=== PATIENT | male | born 1955 | race Caucasian/White ===

== ENCOUNTER 2018-01-19 05:16 | Inpatient (IN) | payer OTHER ==
[2018-01-19] VITALS (10 sets, daily range): BP systolic 128–144; BP diastolic 71–90
[~2018-01-19] VITALS: Ht 180.3 cm; Wt 83.9 kg
[2018-01-19] MEDS ORDERED: OMEPRAZOLE20 M2 ORAL (06:07)
[2018-01-19] MEDS ORDERED: ASPIRIN EC325 MG ORAL (06:07)
[2018-01-19] MEDS ORDERED: UROXATRAL10 MG ORAL (06:07)
[2018-01-19] MEDS ORDERED: ATORVASTATIN CA20 MG ORAL (06:07)
[2018-01-19] MEDS ORDERED: DIOVAN160 MG ORAL (06:07)
[2018-01-19] MEDS ORDERED: Thrombin 5000 units TOPIC ONE (06:50)
[2018-01-19] MEDS ORDERED: Vancomycin 1gm inj IVPB ONE ×2 (06:51)
[2018-01-19] MEDS ORDERED: Surgicel 4in x 8in TOPIC ONE (06:51)
[2018-01-19] MEDS ORDERED: Bacitracin 50000 Units Vial ONE (06:51)
[2018-01-19] MEDS ORDERED: Ketorolac 30mg Inj ONE (07:00)
[2018-01-19] MEDS ORDERED: Neostigmine 1mg/ml 10ml Inj ONE (07:00)
[2018-01-19] MEDS ORDERED: fentaNYL 100 mcg/2 mL IV ONE (07:00)
[2018-01-19] MEDS ORDERED: Dexamethasone 4mg/ml vial ONE (07:00)
[2018-01-19] MEDS ORDERED: Zemuron 50mg/5ml Inj IV ONE (07:00)
[2018-01-19] MEDS ORDERED: NS Irrig 1000ml ONE (07:00)
[2018-01-19] MEDS ORDERED: Vancomycin 1 GM in D5W 275 ML IVPB ONE (07:00)
[2018-01-19] MEDS ORDERED: Midazolam 2mg/2ml Inj ONE (07:00)
[2018-01-19] MEDS ORDERED: Succinylcholine 20mg/ml 10ml vial ONE (07:00)
[2018-01-19] MEDS ORDERED: LR 1000ml ONE (07:00)
[2018-01-19] MEDS ORDERED: Morphine Sulfate 10mg/ml Inj ONE (07:00)
[2018-01-19] MEDS ORDERED: Glycopyrrolate 0.2mg/ml 1ml Vial ONE (07:00)
[2018-01-19] MEDS ORDERED: Metoclopramide 10mg/2ml Inj ONE (07:00)
[2018-01-19] MEDS ORDERED: Propofol 1,000mg/ 100ml btl IV ONE (07:00)
[2018-01-19] MEDS ORDERED: Sterile Water Irrig 1000ml IRRIG ONE (07:00)
--- NOTE | 2018-01-19 07:19 | Pre-Procedure Note/Attestation ---
Pre-Procedure Note/Attestation Complete Prior to Procedure Planned Procedure: not applicable Procedure Narrative: Artificial disc replacement of C56 and anterior cervical discectomy and fusion of C67 Indications for Procedure Pre-Operative Diagnosis: Herniation of 56 and 67 Attestation I attest that I discussed the nature of the procedure; its benefits; risks and complications; and alternatives (and the risks and benefits of such alternatives ), prior to the procedure, with the patient (or the patient's legal order entry representative). I attest that, if there was a reasonable possibility of needing a blood transfusion, the patient (or the patient's legal order entry representative) was given the [facility] standardized written summary, pursuant to the [place] Blood Safety Act ([place] Health and Safety Code # 1645, as amended). I attest that I re-evaluated the patient just prior to the surgery and that there has been no change in the patient's H&P, except as documented below: TERRELL HICKS Jan 19, 2018 07:19
--- NOTE | 2018-01-19 07:20 | Brief Operative Note ---
Immediate Post Operative Note Operative Note Chief Complaint: neck pain and radiculopathy Pre-op Diagnosis: Herniation of 56 and 67 Procedure: Artificial disc replacement of C56 and anterior cervical discectomy and fusion of C67 Post-op Diagnosis: same as pre-op Findings: consistent w/pre-op dx studies Surgeon: Thanh Pinsetter Mechanic Automatic: Gilma Anesthesia: general Specimen: none Complications: none Condition: stable Estimated Blood Loss: minimal Implant(s) used?: Yes - Prodisc C, nuvasive interlock C TERRELL HICKS Jan 19, 2018 07:20
[2018-01-19] MEDS ORDERED: HYDROmorphone 1mg/ml Carpuject IVP PRN (07:30)
[2018-01-19] MEDS ORDERED: Naloxone 0.4mg/ml Inj IVP PRN (07:30)
[2018-01-19] MEDS ORDERED: Norco 5mg/325mg tab ORAL PRN (07:30)
[2018-01-19] MEDS ORDERED: Chloraseptic Spray 20mL Bottle ORAL PRN (07:30)
[2018-01-19] MEDS ORDERED: Milk of Magnesia 30ml Ud ORAL PRN (07:30)
[2018-01-19] MEDS ORDERED: HYDROcodone/Acetamin 7.5/325 tab ORAL PRN ×2 (07:30)
[2018-01-19] MEDS ORDERED: HYDROmorphone 1mg/ml Carpuject SUBQ PRN (07:30)
[2018-01-19] MEDS ORDERED: LR 1000ml 1,000 ML IVLG SCH (08:17)
--- NOTE | 2018-01-19 08:20 | Anethesia Preoperative Eval ---
Anesthesia Pre-op PMH/ROS General Date of Evaluation: Jan 19, 2018 Time of Evaluation: 06:55 Anesthesiologist: DUNCAN ASA Score: ASA 2 Mallampati Score Class I : Soft palate, uvula, fauces, pillars visible Class II: Soft palate, uvula, fauces visible Class III: Soft palate, base of uvula visible Class IV: Only hard plate visible Mallampati Classification: Class II Surgeon: FABIOLA Diagnosis: CERVICAL RADICULOPATHY Surgical Procedure: ACDF C5-7 Anesthesia History: none Allergies: Coded Allergies: PENICILLINS (Verified Allergy, Unknown, 01/18/18) Medications: see eMAR Anesthesia Pre-op Phys. Exam Physician Exam Last Vital Signs Date Time Temp Pulse Resp B/P (MAP) Pulse Ox O2 Delivery O2 Flow Rate FiO2 01/19/18 06:02 97.1 58 18 129/79 98 Room Air 97.1 Constitutional: NAD Neurologic: CN 2-12 intact Cardiovascular: RRR Respiratory: CTA Gastrointestinal: S/NT/ND Airway Exam Mallampati Score: Class II MO: full ROM: full Teeth: intact Anesthesia Pre-op A/P Risk Assessment & Plan Plan: GA Status Change Before Surgery: No Pre-Antibiotics Drug: VANCOMYCIN Given Within 1 Hr of Incision: Yes Time Given: 08:40 Pedro Palacios M.D. Jan 19, 2018 08:20
--- NOTE | 2018-01-19 08:25 | Immediate Post-Op Evaluation ---
Immediate Post-Op Evalulation Immediate Post-Op Evalulation Procedure: ACDF Date of Evaluation: Jan 19, 2018 Time of Evaluation: 10:00 IV Fluids: 1000 Blood Products: 0 Estimated Blood Loss: 20 Urinary Output: 0 Blood Pressure Systolic: 123 Blood Pressure Diastolic: 71 Pulse Rate: 101 Respiratory Rate: 20 O2 Sat by Pulse Oximetry: 99 Temperature (Fahrenheit): 98.6 Pain Score (1-10): 0 Nausea: No Vomiting: No Patient Status: awake, reacts, patent, extubated Hydration Status: adequate Drug: VANCOMYCIN Given Within 1 Hr of Incision: Yes Time Given: 07:40 Pedro Palacios M.D. Jan 19, 2018 08:25
--- NOTE | 2018-01-19 08:27 | 48 Hour Post Anesthesia Eval ---
Post Anesthesia Evaluation Procedure: ACDF Date of Evaluation: Jan 21, 2018 Time of Evaluation: 09:00 Blood Pressure Systolic: 123 0: 71 Pulse Rate: 99 Respiratory Rate: 18 Temperature (Fahrenheit): 98 O2 Sat by Pulse Oximetry: 99 Airway: patent Nausea: No Vomiting: No Pain Intensity: 0 Hydration Status: adequate Mental Status/LOC: patient returned to baseline Post-Anesthesia Complications: NONE Follow-up care needed: ready to discharge Pedro Palacios M.D. Jan 19, 2018 08:27
[2018-01-19] MEDS ORDERED: Labetalol 5mg/ml 20ml vial IV PRN (08:30)
[2018-01-19] MEDS ORDERED: fentaNYL 100 mcg/2 mL IV PRN (08:30)
[2018-01-19] MEDS ORDERED: Morphine Sulfate 2mg/ml Inj IVP PRN (08:30)
[2018-01-19] MEDS ORDERED: Midazolam 2mg/2ml Inj IVP PRN (08:30)
[2018-01-19] MEDS ORDERED: Ketorolac 30mg Inj IV PRN (08:30)
--- NOTE | 2018-01-19 11:48 | Diagnostic Imaging Report ---
Indication: Intraoperative, upper extremity and neck pain Technique: Intraoperative images Comparison: Intraoperative images Findings: Initial image demonstrates surgical tool projected at the C6-7 disc level. Subsequent images document placement of a disc prosthesis at C5-6 and anterior fusion at C6-7 Impression: Intraoperative imaging, as described
[2018-01-19] MEDS ORDERED: Hydromorphone 0.5mg/0.5ml inj IVP PRN (12:45)
[2018-01-19] MEDS ORDERED: NS w/KCl 20mEq 1,000 ML IV SCH (13:00)
[2018-01-19] MEDS ORDERED: Docusate 100mg cap ORAL SCH (18:00)
[2018-01-19] MEDS ORDERED: Vancomycin 1 GM in D5W 275 ML IVPB SCH (21:00)
--- NOTE | 2018-01-20 00:24 | Consultation ---
History of Present Illness General Date patient seen: Jan 19, 2018 Time patient seen: 14:10 Chief Complaint: intracable neck pain Referring physician: Dr. Law Reason for Consultation: med mgmt Present Illness HPI 62y/o male with pmh of HLD, GERD, BPH, HTN, cervical disc herniation who presents s/p artificial disc replacement of C56 and anterior cervical discectomy and fusion of C67 earlier today, POD#0. No periop or postop complications. Pain controlled. Pt denies chest pain, SOB, f/c, n/v, d/c, abd pain. Allergies: Coded Allergies: PENICILLINS (Verified Allergy, Unknown, 01/18/18) Medication History Scheduled Alfuzosin 10Mg (Uroxatral), 10 MG ORAL DAILY, (Reported) Aspirin* (Aspirin Ec*), 325 MG ORAL DAILY, (Reported) Atorvastatin Calcium* (Atorvastatin Calcium*), 10 MG ORAL 3XW, (Reported) Omeprazole (Omeprazole), 20 MG ORAL DAILY, (Reported) Valsartan (Diovan), 160 MG ORAL DAILY, (Reported) Patient History History Provided By: Patient, Medical Record Healthcare decision maker dex brice () Resuscitation status Full Code Advanced Directive on File No Past Medical/Surgical History Past Medical/Surgical History: (1) HTN (hypertension) (2) HLD (hyperlipidemia) (3) GERD (gastroesophageal reflux disease) (4) BPH (benign prostatic hyperplasia) Family History Family History: (1) No significant family history Social History Social History: (1) No significant social history Review of Systems Constitutional: Reports: no symptoms Eye: Reports: no symptoms ENT: Reports: no symptoms Respiratory: Reports: no symptoms Cardiovascular: Reports: no symptoms Genitourinary: Reports: no symptoms Musculoskeletal: Reports: back pain, muscle pain Skin: Reports: no symptoms Psychiatric: Reports: no symptoms Neurological: Reports: no symptoms Endocrine: Reports: no symptoms Hematologic/Lymphatic: Reports: no symptoms Physical Exam Physical Exam Narrative General: alert, cooperative, no distress, appears stated age Head: normocephalic, without obvious abnormality, atraumatic Eyes: conjunctivae/corneas clear. PERRL, EOM's intact Throat: lips, mucosa, and tongue normal. MMM Neck: supple, symmetrical, trachea midline, and no JVD Lungs: clear to auscultation bilaterally Heart: regular rate and rhythm, S1, S2 normal, no murmur, click, rub or gallop Abdomen: soft, non-tender, non-distended, bowel sounds normal; no masses or organomegaly Extremities: extremities normal, atraumatic, no cyanosis or edema Pulses: 2+ and symmetric Skin: dressing c/d/i Neurologic: grossly normal, no focal deficits Last 24 Hour Vital Signs Date Time Temp Pulse Resp B/P (MAP) Pulse Ox O2 Delivery O2 Flow Rate FiO2 01/19/18 13:35 97.6 01/19/18 13:05 97.6 01/19/18 12:50 Nasal Cannula 3.0 32 01/19/18 12:50 100 Nasal Cannula 3.0 32 01/19/18 10:50 97.6 01/19/18 10:50 97.6 01/19/18 10:50 97.6 61 16 128/82 100 Nasal Cannula 3.0 97.6 01/19/18 10:45 59 15 132/78 100 Nasal Cannula 3.0 01/19/18 10:34 97.6 01/19/18 10:30 62 17 130/71 100 Nasal Cannula 3.0 01/19/18 10:20 68 16 132/77 100 Nasal Cannula 3.0 01/19/18 10:10 71 15 137/77 100 Simple Mask 6.0 01/19/18 10:05 97.0 01/19/18 10:00 82 16 142/90 100 Simple Mask 6.0 01/19/18 09:50 90 13 144/80 98 Simple Mask 6.0 01/19/18 09:45 78 13 140/80 98 Simple Mask 6.0 01/19/18 09:40 97.0 81 14 140/78 97 Simple Mask 6.0 97.0 01/19/18 08:27 208.4 99 18 99 01/19/18 08:25 209.5 101 20 99 01/19/18 06:02 97.1 58 18 129/79 98 Room Air 97.1 Intake and Output 01/19/18 01/20/18 19:00 07:00 Intake Total 1500 ml Output Total 430 ml Balance 1070 ml Intake IV Total 1500 ml Output Urine Total 400 ml Estimated Blood Loss 30 ml Height (Feet): 5 Height (Inches): 11.00 Weight (Pounds): 185 Assessment/Plan Problem List: (1) HNP (herniated nucleus pulposus), cervical ICD Codes: M50.20 - Other cervical disc displacement, unspecified cervical region SNOMED: 50624511 (2) HTN (hypertension) ICD Codes: I10 - Essential (primary) hypertension SNOMED: 99046246 (3) HLD (hyperlipidemia) ICD Codes: E78.5 - Hyperlipidemia, unspecified SNOMED: 37783841 (4) BPH (benign prostatic hyperplasia) ICD Codes: N40.0 - Benign prostatic hyperplasia without lower urinary tract symptoms SNOMED: 434349766 (5) GERD (gastroesophageal reflux disease) ICD Codes: K21.9 - Gastro-esophageal reflux disease without esophagitis SNOMED: 745924903 Status: stable Assessment/Plan Appreciate surgery rec's s/p artificial disc replacement of C56 and anterior cervical discectomy and fusion of C67 on 02/22/18 Post operative recommendations include: - encourage mobilization/ambulation - encourage incentive spirometry to optimize pulmonary hygiene - DVT/GI prophylaxis as appropriate - PT/OT - pain control, supportive care, bowel regimen FULL CODE D/w pt/, RN, SW/CM, surgery regarding mgmt and dispo Darline Mccabe M.D. Jan 20, 2018 00:24
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
== END 2018-01-19 17:30 | disposition home or self-care (01) | DRG 473 ==
LOC: SDSOVERFLO 05:16 → 3E 11:48
PROC: 0RB30ZZ Excision of Cervical Vertebral Disc, Open Approach (ICD-10-PCS; principal; 2018-01-19 07:00)
PROC: 0RR30JZ Replacement of Cervical Vertebral Disc with Synthetic Substitute, Open Approach (ICD-10-PCS; principal; 2018-01-19 07:00)
PROC: 0RG10A0 Fusion of Cervical Vertebral Joint with Interbody Fusion Device, Anterior Approach, Anterior Column, Open Approach (ICD-10-PCS; principal; 2018-01-19 07:00)
DX: M50.122 Cervical disc disorder at C5-C6 level with radiculopathy (principal); I10 Essential (primary) hypertension; M48.02 Spinal stenosis, cervical region; R35.0 Frequency of micturition; E78.00 Pure hypercholesterolemia, unspecified; Z88.0 Allergy status to penicillin; V43.53XS Car driver injured in collision with pick-up truck in traffic accident, sequela
CPT/HCPCS: 36415; 51702; 72040; 76001; 86850; 86900; 86901; 87081; 94003; 94150; 94760; 96360; 96361; G0378; J2250; J2405; J2710; J2765

== ENCOUNTER 2018-07-29 08:56 | Inpatient (IN) | payer OTHER ==
[~2018-07-29] VITALS: Ht 180.3 cm; Wt 83.9 kg
[2018-07-29] VITALS (9 sets, daily range): BP systolic 135–154; BP diastolic 69–87
[~2018-07-29 08:56] MED LIST: ASPIRIN EC325 MG ORAL; ATORVASTATIN CA20 MG ORAL; DIOVAN160 MG ORAL; OMEPRAZOLE20 M2 ORAL; UROXATRAL10 MG ORAL; Vancomycin 1 GM in D5W 275 ML IVPB ONE
[2018-07-29] MEDS ORDERED: Vancomycin 1gm inj IVPB ONE ×3 (09:55→11:14)
[2018-07-29] MEDS ORDERED: Zemuron 50mg/5ml Inj IV ONE (09:55)
[2018-07-29] MEDS ORDERED: Midazolam 2mg/2ml Inj ONE (10:00)
[2018-07-29] MEDS ORDERED: fentaNYL 100 mcg/2 mL IV ONE (10:00)
[2018-07-29] MEDS ORDERED: Lidocaine 1% MPF 10mg/ml 5ml ONE (10:08)
[2018-07-29] MEDS ORDERED: EPINEPHrine 1mg/1ml Amp ONE (10:55)
[2018-07-29] MEDS ORDERED: Bupivacaine 0.5% Inj 30 ml vial INJ ONE ×2 (10:56→11:32)
[2018-07-29] MEDS ORDERED: Bacitracin 50000 Units Vial ONE (10:56)
[2018-07-29] MEDS ORDERED: Gelfoam Size TOPIC ONE (10:56)
[2018-07-29] MEDS ORDERED: Thrombin 5000 units TOPIC ONE (10:56)
--- NOTE | 2018-07-29 11:40 | Pre-Procedure Note/Attestation ---
Pre-Procedure Note/Attestation Complete Prior to Procedure Planned Procedure: right Procedure Narrative: Lumbar 5-S1 right sided microdiscectomy Indications for Procedure Pre-Operative Diagnosis: L5S1 Microdiscectomy Attestation I attest that I discussed the nature of the procedure; its benefits; risks and complications; and alternatives (and the risks and benefits of such alternatives ), prior to the procedure, with the patient (or the patient's legal medical collections representative). I attest that, if there was a reasonable possibility of needing a blood transfusion, the patient (or the patient's legal medical collections representative) was given the [facility] standardized written summary, pursuant to the [place] Blood Safety Act ([place] Health and Safety Code # 1645, as amended). I attest that I re-evaluated the patient just prior to the surgery and that there has been no change in the patient's H&P, except as documented below: Byron Law MD Jul 29, 2018 11:39
--- NOTE | 2018-07-29 11:41 | Brief Operative Note ---
Immediate Post Operative Note Operative Note Chief Complaint: Radiculopathy Pre-op Diagnosis: L5S1 Microdiscectomy Procedure: Lumbar 5-S1 right sided microdiscectomy Post-op Diagnosis: same as pre-op Findings: consistent w/pre-op dx studies Surgeon: Thanh Travel Clerk: Shaquille Anesthesiologist: RENITA Anesthesia: general Specimen: none Complications: none Condition: stable Fluids: IVF Estimated Blood Loss: none Implant(s) used?: No Byron Law MD Jul 29, 2018 11:41
[2018-07-29] MEDS ORDERED: Norco 5mg/325mg tab ORAL PRN (11:45)
[2018-07-29] MEDS ORDERED: HYDROmorphone 1mg/ml Carpuject IVP PRN (11:45)
[2018-07-29] MEDS ORDERED: Milk of Magnesia 30ml Ud ORAL PRN (11:45)
[2018-07-29] MEDS ORDERED: Morphine Sulfate 4mg/ml Inj (IV USE ONLY) IV PRN ×2 (11:45)
[2018-07-29] MEDS ORDERED: Naloxone 0.4mg/ml Inj IVP PRN (11:45)
[2018-07-29] MEDS ORDERED: Metoclopramide 10mg/2ml Inj IVP PRN (11:45)
[2018-07-29] MEDS ORDERED: Morphine Sulfate 2mg/ml Inj IV PRN (11:45)
[2018-07-29] MEDS ORDERED: HYDROcodone/Acetamin 7.5/325 tab ORAL PRN ×2 (11:45)
[2018-07-29] MEDS: Dexamethasone 4mg/ml vial IVP SCH ×2 (12:00→18:00)
[2018-07-29] MEDS ORDERED: Morphine Sulfate 10mg/ml Inj ONE (12:20)
[2018-07-29] MEDS ORDERED: Sodium Chloride 10ml vial INJ ONE (12:20)
[2018-07-29] MEDS ORDERED: Neostigmine 1mg/ml 10ml Inj ONE (12:20)
[2018-07-29] MEDS ORDERED: Glycopyrrolate 0.2mg/ml 1ml Vial ONE (12:20)
[2018-07-29] MEDS ORDERED: Ketorolac 30mg Inj ONE (12:20)
[2018-07-29] MEDS ORDERED: Propofol 1,000mg/ 100ml btl IV ONE (12:30)
[2018-07-29] MEDS ORDERED: Sterile Water Irrig 1000ml IRRIG ONE (12:30)
[2018-07-29] MEDS ORDERED: LR 1000ml ONE (12:30)
[2018-07-29] MEDS ORDERED: NS Irrig 1000ml ONE (12:30)
[2018-07-29] MEDS ORDERED: Succinylcholine 20mg/ml 10ml vial ONE (12:30)
[2018-07-29] MEDS ORDERED: LR 1000ml 1,000 ML IVLG SCH (12:40)
--- NOTE | 2018-07-29 12:40 | Anethesia Preoperative Eval ---
Anesthesia Pre-op PMH/ROS General Date of Evaluation: Jul 29, 2018 Time of Evaluation: 11:28 Anesthesiologist: Helen ASA Score: ASA 2 Mallampati Score Class I : Soft palate, uvula, fauces, pillars visible Class II: Soft palate, uvula, fauces visible Class III: Soft palate, base of uvula visible Class IV: Only hard plate visible Mallampati Classification: Class II Surgeon: Thanh Diagnosis: Lumbar radiculopathy Surgical Procedure: L5-S1 laminotomy with decompression Anesthesia History: none Family History: no anesthesia problems Allergies: Coded Allergies: PENICILLINS (Verified Allergy, Unknown, 01/18/18) Medications: see eMAR Past Medical History Cardiovascular: Reports: HTN - stable; Denies: CAD, TN, valve dz, arrhythmia, other Pulmonary: Denies: asthma, COPD, JUSTINE, other Gastrointestinal/Genitourinary: Reports: GERD; Denies: CRI, ESRD, other Neurologic/Psychiatric: Reports: other - chronic pain; Denies: dementia, CVA, depression/anxiety, TIA Endocrine: Denies: DM, hypothyroidism, steroids, other HEENT: Denies: cataract (L), cataract (R), glaucoma, [place] (L), [place] (R), other Hematology/Immune: Denies: anemia, DVT, bleeding disorder, other Musculoskeletal/Integumentary: Denies: OA, RA, DJD, DDD, edema, other PMH Narrative: as above PSxH Narrative: ACDF, R knee replacement Anesthesia Pre-op Phys. Exam Physician Exam Last Vital Signs Date Time Temp Pulse Resp B/P (MAP) Pulse Ox O2 Delivery O2 Flow Rate FiO2 07/29/18 09:38 97.8 50 18 135/81 (99) 96 97.8 07/29/18 09:28 Room Air Constitutional: NAD Neurologic: CN 2-12 intact Cardiovascular: RRR, no M/R/G Respiratory: CTA Gastrointestinal: S/NT/ND Airway Exam Mallampati Score: Class II MO: full Neck: stiff ROM: limited Teeth: intact Dentures: no upper, no lower Anesthesia Pre-op A/P Labs see chart Studies Pre-op Studies: EKG - NSR, CXR - WNL Risk Assessment & Plan Assessment: ASA 2 Plan: GA wth ETT prone position, neuromonitoring Status Change Before Surgery: No Pre-Antibiotics Drug: Vancomycin 1gr. Given Within 1 Hr of Incision: Yes Time Given: 12:20 Alfie Cervantse MD Jul 29, 2018 12:40
[2018-07-29] MEDS ORDERED: Midazolam 2mg/2ml Inj IVP PRN (12:45)
[2018-07-29] MEDS ORDERED: DiphenhydrAMINE 50mg/ml Inj IVP PRN (12:45)
[2018-07-29] MEDS ORDERED: Meperidine 50mg/ml Inj(FOR RIGORS ONLY) IV PRN (12:45)
[2018-07-29] MEDS ORDERED: Ketorolac 30mg Inj IV PRN (12:45)
[2018-07-29] MEDS ORDERED: fentaNYL 100 mcg/2 mL IV PRN (12:45)
--- NOTE | 2018-07-29 13:50 | Diagnostic Imaging Report ---
Indication: Intraoperative imaging; back pain. Findings: Fluoroscopic imaging obtained intraoperatively. Fluoroscopic time: 2.2 seconds Number fluoroscopic images: Single image. Single image showing instrument posterior to the L5-S1 disc. IMPRESSION: Intraoperative imaging
--- NOTE | 2018-07-29 13:57 | Immediate Post-Op Evaluation ---
Immediate Post-Op Evalulation Immediate Post-Op Evalulation Procedure: L5-S1 laminotomy with decompression Date of Evaluation: Jul 29, 2018 Time of Evaluation: 13:56 IV Fluids: 1400 Blood Products: none Estimated Blood Loss: 50 Urinary Output: 500 Blood Pressure Systolic: 141 Blood Pressure Diastolic: 84 Pulse Rate: 86 Respiratory Rate: 20 O2 Sat by Pulse Oximetry: 99 Temperature (Fahrenheit): 97.6 Pain Score (1-10): 1 Nausea: No Vomiting: No Complications none Patient Status: awake, patent, none Hydration Status: adequate Alfie Cervantes MD Jul 29, 2018 13:57
--- NOTE | 2018-07-29 14:49 | 48 Hour Post Anesthesia Eval ---
Post Anesthesia Evaluation Procedure: L5-S1 laminotomy with decompression Date of Evaluation: Jul 29, 2018 Time of Evaluation: 14:48 Blood Pressure Systolic: 146 0: 73 Pulse Rate: 68 Respiratory Rate: 20 Temperature (Fahrenheit): 97.6 O2 Sat by Pulse Oximetry: 98 Airway: patent Nausea: No Vomiting: No Pain Intensity: 2 Hydration Status: adequate - s Cardiopulmonary Status: stable Mental Status/LOC: patient returned to baseline Follow-up Care/Observations: n/a Post-Anesthesia Complications: none Follow-up care needed: ready to discharge Alfie Cervantes MD Jul 29, 2018 14:49
--- NOTE | 2018-07-29 15:18 | History and Physical ---
History of Present Illness General Date patient seen: Jul 29, 2018 Present Illness HPI 62 year old male with hx of Hypertension, CAD, admitted with radicular neuropathy. Pt underwent microdisectomy and admitted to surgical floor for post op care. Allergies: Coded Allergies: PENICILLINS (Verified Allergy, Unknown, 01/18/18) Medication History Scheduled Alfuzosin 10Mg (Uroxatral), 10 MG ORAL DAILY, (Reported) Aspirin* (Aspirin Ec*), 325 MG ORAL DAILY, (Reported) Atorvastatin Calcium* (Atorvastatin Calcium*), 10 MG ORAL 3XW, (Reported) Omeprazole (Omeprazole), 20 MG ORAL DAILY, (Reported) Valsartan (Diovan), 160 MG ORAL DAILY, (Reported) Patient History Healthcare decision maker dex brice - Resuscitation status Full Code Advanced Directive on File No Past Medical/Surgical History Past Medical/Surgical History: (1) HTN (hypertension) (2) GERD (gastroesophageal reflux disease) (3) BPH (benign prostatic hyperplasia) Family History Family History: No significant family history Review of Systems All Other Systems: negative except mentioned in HPI Physical Exam General Appearance: WD/WN Lines, tubes and drains: peripheral HEENT: atraumatic Neck: non-tender, normal alignment Respiratory/Chest: chest wall non-tender, normal breath sounds Cardiovascular/Chest: normal peripheral pulses, normal rate Abdomen: normal bowel sounds Genitourinary/Rectal: normal genital exam Extremities: non-tender Last 24 Hour Vital Signs Date Time Temp Pulse Resp B/P (MAP) Pulse Ox O2 Delivery O2 Flow Rate FiO2 07/29/18 14:49 207.7 68 20 98 07/29/18 14:35 98.3 77 20 137/85 100 Nasal Cannula 3 98.3 07/29/18 14:25 78 15 140/87 100 Nasal Cannula 3 07/29/18 14:13 98.3 07/29/18 14:13 73 13 144/78 100 Nasal Cannula 3 07/29/18 14:05 75 20 139/81 100 Simple Mask 6 07/29/18 13:57 207.7 86 20 99 07/29/18 13:55 82 16 146/76 100 Simple Mask 6 07/29/18 13:50 65 18 141/84 100 Simple Mask 6 07/29/18 13:45 97.8 92 20 154/69 100 Simple Mask 6 97.8 07/29/18 09:38 97.8 50 18 135/81 (99) 96 97.8 07/29/18 09:28 Room Air Height (Feet): 5 Height (Inches): 11.00 Weight (Pounds): 185 Medications Current Medications Medications (Trade) Dose Ordered Sig/Thong Route PRN Reason Start Time Stop Time Status Last Admin Dose Admin Acetaminophen (Tylenol) 650 mg Q4H PRN ORAL headache or temp>101 07/29/18 11:45 08/28/18 11:44 UNV Acetaminophen/ Hydrocodone Bitart ([place] 5/325) 1 tab Q3H PRN ORAL pain score 1-3 07/29/18 11:45 08/05/18 11:44 UNV Acetaminophen/ Hydrocodone Bitart ([place] 7.5/325) 1 tab Q3H PRN ORAL pain score 4-6 07/29/18 11:45 08/05/18 11:44 UNV Acetaminophen/ Hydrocodone Bitart ([place] 7.5/325) 2 tab Q3H PRN ORAL pain scale 7-10 07/29/18 11:45 08/05/18 11:44 UNV Carisoprodol (Soma) 350 mg TIDPRN PRN ORAL SPASM 07/29/18 11:45 08/28/18 11:44 UNV Cetylpyridinium Chloride (Cepacol) 1 lozg EVERY 2 HOURS PRN MARIANNA To Patient Comfort 07/29/18 11:45 08/28/18 11:44 UNV Dexamethasone Sodium Phosphate (Decadron 4mg/ml vial) 4 mg Q6HR IVP 07/29/18 12:00 07/30/18 06:01 UNV Diphenhydramine HCl (Benadryl) 25 mg Q15M PRN IVP Itching 07/29/18 12:45 07/29/18 18:00 Docusate Sodium (Colace) 100 mg TWICE A DAY ORAL 07/29/18 18:00 08/28/18 17:59 UNV Fentanyl Citrate (Sublimaze 100 mcg/2 mL) 50 mcg Q10M PRN IV Moderate Pain (Pain Scale 4-6) 07/29/18 12:45 07/29/18 18:00 Hydromorphone HCl (Dilaudid) 1 mg Q2H PRN IVP Breakthrough Pain 07/29/18 11:45 08/05/18 11:44 UNV Ketorolac Tromethamine (Toradol 30mg) 30 mg Q1H PRN IV Severe Breakthru Pain (>7) 07/29/18 12:45 07/29/18 18:00 Magnesium Hydroxide (Mom) 30 ml QIDPRN PRN ORAL Constipation 07/29/18 11:45 08/28/18 11:44 UNV Meperidine HCl (Demerol) 25 mg Q15M PRN IV chills 07/29/18 12:45 07/29/18 18:00 07/29/18 14:13 Metoclopramide HCl (Reglan) 10 mg Q6H PRN IVP Nausea & Vomiting 07/29/18 11:45 08/28/18 11:44 UNV Midazolam HCl (Versed 2mg/2ml vial) 1 mg Q15M PRN IVP For Anxiety 07/29/18 12:45 07/29/18 18:00 Morphine Sulfate (Morphine Sulfate) 2 mg Q4H PRN IV Mild Pain (Pain Scale 1-3) 07/29/18 11:45 08/05/18 11:44 UNV Morphine Sulfate (Morphine Sulfate) 4 mg Q3H PRN IV Severe Pain (Pain Scale 7-10) 07/29/18 11:45 08/05/18 11:44 UNV Morphine Sulfate (Morphine Sulfate) 4 mg Q4H PRN IV Moderate Pain (Pain Scale 4-6) 07/29/18 11:45 08/05/18 11:44 UNV Naloxone HCl (Narcan) 0.1 mg PRN PRN IVP RR<12/min, pt unarousable 07/29/18 11:45 08/28/18 11:44 UNV Ondansetron HCl (Zofran) 4 mg Q1H PRN IVP Nausea & Vomiting 07/29/18 12:45 07/29/18 18:00 Ondansetron HCl (Zofran) 4 mg Q6H PRN IVP Nausea & Vomiting 07/29/18 11:45 08/28/18 11:44 UNV Phenol/Menthol (Chloraseptic) 1 spray Q3H PRN ORAL To Patient Comfort 07/29/18 11:45 08/28/18 11:44 UNV Prochlorperazine (Compazine) 10 mg Q6H PRN IVP Nausea & Vomiting 07/29/18 11:45 08/28/18 11:44 UNV Sodium Chloride 1,000 ml @ 100 mls/hr Q10H IV 07/29/18 11:41 08/28/18 11:40 UNV Temazepam (Restoril) 15 mg HSPRN PRN ORAL Insomnia 07/29/18 11:45 08/05/18 11:44 UNV Vancomycin HCl 1 gm/Dextrose 275 ml @ 183.3 mls/ hr EVERY 12 HOURS IV 07/29/18 21:00 07/30/18 10:31 UNV Assessment/Plan Problem List: (1) S/P discectomy for herniated nucleus pulposus ICD Codes: Z98.890 - Other specified postprocedural states; Z87.39 - Personal history of other diseases of the musculoskeletal system and connective tissue SNOMED: 27726926, 92180940, 520525643 (2) Herniation of intervertebral disc SNOMED: 90106164 (3) HTN (hypertension) ICD Codes: I10 - Essential (primary) hypertension SNOMED: 40146501 (4) GERD (gastroesophageal reflux disease) ICD Codes: K21.9 - Gastro-esophageal reflux disease without esophagitis SNOMED: 495270897 Assessment/Plan pain management symptomatic treatment dvt prophylaxis pt/ot Malia Hood MD Jul 29, 2018 15:18
[2018-07-29] MEDS ORDERED: NS w/KCl 20mEq 1,000 ML IV SCH (16:00)
[2018-07-29] MEDS ORDERED: Chloraseptic Spray 20mL Bottle ORAL PRN (16:00)
[2018-07-29] MEDS ORDERED: Docusate 100mg cap ORAL SCH (18:00)
[2018-07-29] MEDS ORDERED: Vancomycin 1 GM in D5W 275 ML IVPB SCH (21:00)
[2018-07-29] MEDS ORDERED: Atorvastatin 20mg tab ORAL SCH (21:00)
[2018-07-30] MEDS ORDERED: Irbesartan 150mg tablet ORAL SCH (09:00)
--- NOTE | 2018-07-30 17:00 | Discharge Summary ---
DATE OF ADMISSION: 07/29/2018 DATE OF DISCHARGE: 07/29/2018 REASON FOR ADMISSION: Herniated nucleus pulposus, L5-S1. PROCEDURES PERFORMED DURING ADMISSION: Microdiskectomy L5-S1 and hemilaminotomy and foraminotomy. HOSPITAL COURSE/TREATMENT RENDERED: . DISCHARGE PHYSICAL EXAM: 1. Patient was ambulating with and without the assistance of physical therapy. 2. Prior to discharge home incision was clean and dry with minimal swelling. 3. Follows commands. 4. Alert and oriented. 5. Mcknight discontinued, voiding. 6. Incentive spirometer at bedside. 7. IVF hep locked. MOTOR: Demonstrates expected postoperative bulk and tone. Moves biceps, triceps, and deltoid musculature on command. Moves hip flexors, quadriceps, tibialis anterior, EHL, gastrocsoleus musculature on command as well. TREATMENT RENDERED: 1. Daily nursing care. 2. Physical Therapy. 3. Occupational Therapy. 4. Intravenous medications. 5. Oral medications. 6. Daily postoperative examinations by Spine surgery team. CONDITION OF PATIENT ON DISCHARGE: The condition on discharge is stable for discharge to home. DISCHARGE INSTRUCTIONS: Our specific instructions relating to physical activity, medications diet and follow-up care are detailed in our standard operative folder and were given to this patient prior to surgery. We will however summarize these briefly as stated below. Regarding physical activity we would like the patient to limit their flexion, extension and rotation. We also require a limitation on their bending lifting and twisting. All medication has been called in prior to surgery to their pharmacy of choice. They can resume their regular diet once tolerated. We would like them to shower and limit soaking the wound in a tub/Jacuzzi/the ocean for a period of one month or until the incision is completely healed. We will have them follow up in our office in three weeks time for their regularly scheduled appointment. They understand to call our office tomorrow to schedule the time for their three week followup appointment. The patient will notify us should they experience any increase in the severity of pain, redness/swelling/ or drainage from their incision. Byron Law M.D. DR: LEIGHA JOB#: [id number] CC:
--- NOTE | 2018-07-30 23:30 | Operative Note - Dictated ---
DATE OF OPERATION: 07/29/2018 SURGEON: Byron Law M.D., Orthopaedic Spine Surgeon. PHYSICS TECHNICAL OFFICER SURGEON: Paul Corbin M.D. ANESTHESIA: General endotracheal anesthesia. PREOPERATIVE DIAGNOSES: 1. Intractable back pain. 2. Intractable leg pain. 3. Worsening radiculopathy. 4. Weakness. 5. Herniated nucleus pulposus, L5-S1 herniation. 6. Neural foraminal stenosis, L5-S1. POSTOPERATIVE DIAGNOSES: 1. Intractable back pain. 2. Intractable leg pain. 3. Worsening radiculopathy. 4. Weakness. 5. Herniated nucleus pulposus, L5-S1 herniation. 6. Neural foraminal stenosis, L5-S1. PROCEDURES PERFORMED: 1. Right-sided L5-S1 microdiskectomy. 2. Bilateral L5-S1 hemilaminotomy, foraminotomy, and medial facetectomy. 3. L5-S1 neural foraminotomy through a transpedicular intraforaminal approach. 4. Use of intraoperative microscope. 5. Supervision and interpretation of intraoperative fluoroscopy. 6. Supervision and interpretation of somatosensory-evoked potential and free running EMG monitoring. ESTIMATED BLOOD LOSS: Less than 100 mL. COMPLICATIONS: None. INDICATIONS FOR THE PROCEDURE: The patient presents for intractable back pain and radiculopathy. The patient tried and failed a prolonged course of conservative management, including but not limited to chiropractic therapy, physical therapy, nonsteroidal anti-inflammatory drugs, medication, ice packs as well as epidural injection. Despite these therapies, the patient still developed recalcitrant pain and elected for definitive management in the form of right-sided L5-S1 microdiskectomy, bilateral L5-S1 hemilaminotomy, foraminotomy and medial facetectomy, and L5-S1 neural foraminotomy through a transpedicular intraforaminal approach. We had a long discussion with him regarding definitive surgical treatment options. The patient's MRI demonstrated herniated nucleus pulposus, L5-S1 herniation and neural foraminal stenosis, L5-S1 and as a result I felt he would benefit from the diskectomy as well as neural foraminotomy at this level. We had a long discussion with the patient regarding the risks, alternatives, and benefits of surgery. Our description of the risks included a discussion in person as well as a signed consent which detailed all pertinent risks and the procedure itself. Briefly, our discussion included but was not limited to infection, bleeding, pseudarthrosis, spinal cord injury, neurovascular injury, dural tear, CSF leak, neuropathy, paralysis, permanent weakness/drop foot, paresthesias blindness, palsy, and weakness. The patient understood there may be a need for revision surgery or additional procedures. Approach-related complications including dysphonia, dysphagia, blindness, permanent vocal cord and neural injury, hematoma, swallowing and breathing difficulty. Medical complications including liver, kidney, shock, and cardiopulmonary failure. Anesthesia complications including , swelling, damage to the musculature, larynx (voice injury or loss), esophagus (throat), trachea, blood vessels and muscles (muscular sprain), and lungs (pneumothorax) during this surgical procedure. Injury to deeper structures may be temporary or permanent. The patient understood these and elected to proceed. A written and verbal consent was given. We discussed the pros and cons of all the alternatives. We discussed the uncertainties associated with the decision. Afterwards I assessed the patient's understanding and explored their preferences. All questions were answered and no guarantees were given. Medical clearance was obtained prior to surgery. OPERATIVE FINDINGS: A broad-based disk herniation at L5-S1, which encroached on the thecal sac and neural foraminal elements therein. This disk was acute in nature and not calcified. It was mobile and free floating and resected easily. There was also neural foraminal stenosis at L5-S1. DESCRIPTION OF PROCEDURE: Under the benefit of general endotracheal anesthesia and with the assistance of the entire operative team, the patient was moved from the [facility] onto the operative table in the prone position on a Gil frame. The head was secured and positioned appropriately. Bilateral arms were secured with GelPads and foam and all bony prominences were padded. The bilateral lower extremity SCD and BELKIS hose were placed for DVT prophylaxis. A surgical timeout was called which corroborated our planned procedure. Preoperative antibiotics were administered within 30 minutes of the incision for prophylaxis. Decadron was given for preoperative steroids. Using lateral radiography, the operative levels were delineated. An incision was marked based on our interpretation of lateral radiography and afterwards the body was prepped and draped in the usual sterile manner. The family was notified that we were ready to commence surgery and were called in the waiting room hourly for updates. An incision was based on our lateral fluoroscopic image to center the incision at the L5-S1 interspace. The wound was prepped and draped in the usual sterile fashion. Using a scalpel, a midline incision was taken down through the skin and subcutaneous tissues until the overlying hemilamina of L5-S1 were visualized. Next using meticulous hemostasis, bilateral hemilamotomies were dissected and retractors were placed. Using a Dane dental, we confirmed placement at the L5-S1 interspace. We next turned our attention our decompression. A standard bilateral hemilaminotomy, foraminotomy, medial facetectomy was performed at each level in standard fashion using a Midas-Jose type AM8 drill bit, straight and angled curettage, and [place] 4 rongeurs until the lateral thecal sac margin and traversing nerve root was visualized. All remainders of the ligamentum flavum and lateral bony margins were resected in toto with angled curettage and [place] 4 rongeurs until the lateral thecal sac margin and traversing nerve root was visualized and decompressed. We next turned our attention toward our L5-S1 microdiskectomy on the right side. A [place] 4 was used to gently mobilize the thecal sac medially and this was held retracted with a bayonetted nerve root retractor. It was at this point that we noted a large broad-based disk protrusion with encroachment dorsally on the thecal sac neural foraminal contents. A bayonet and nerve root retractor was then placed carefully to retract the thecal sac and a diskectomy was performed using a combination of a long-handled #15 blade scalpel, downgoing and straight pituitaries, and downgoing curettage. Afterward the disk space was irrigated twice with 20 mL of antibiotic-impregnated saline. All loose and free-floating disk fragments were carefully resected with a narrow pituitary. Having been satisfied with our decompression after our discectomy of all neural elements, we next turned our attention to our neural foraminoplasty/foraminotomy. This was performed through a transpedicular intraforaminal approach using an access probe followed by a neurocheck device, which confirmed ventral placement of our nerve root. Once we confirmed we were safe, we next turned our attention towards placement of our size #10 file under direct microscopic visualization and under lateral fluoroscopy. Using pre- and post-reciprocation imaging, we were able to visualize our direct decompression given the reciprocation allowed for re-creation of the neural foraminal arch at L5-S1. Afterwards hemostasis was obtained with 60 mL of antibiotic-impregnated saline followed by FloSeal and Gelfoam. After sponge and needle count were found to be correct, next we turned our attention to closure. Closure consisted of 1-0 Vicryl in standard interrupted fashion. Zosyn was placed deep to the fascia and superficial to the fascia for antibiotic prophylaxis. Skin closure was performed with 2-0 Vicryl in interrupted fashion followed by running Monocryl for the skin. Final dressings consisted of Dermabond for the superficial skin, Telfa, and Tegaderm. The patient tolerated the procedure well. The patient was extubated after the conclusion of surgery without incident. We discussed the findings of the surgery with the family upon completion of the case. At this point, the patient will be transferred to the spine floor for further observation. Byron Law M.D. DR: LEIGHA JOB#: [id number] CC:
== END 2018-07-29 18:15 | disposition home or self-care (01) | DRG 520 ==
LOC: SDSOVERFLO 08:56 → 3E 15:10
DX: M51.17 Intervertebral disc disorders with radiculopathy, lumbosacral region (principal); M48.07 Spinal stenosis, lumbosacral region; I10 Essential (primary) hypertension; I25.10 Atherosclerotic heart disease of native coronary artery without angina pectoris; Z88.0 Allergy status to penicillin; K21.9 Gastro-esophageal reflux disease without esophagitis; N40.0 Benign prostatic hyperplasia without lower urinary tract symptoms
CPT/HCPCS: 36415; 72020; 76001; 86850; 86900; 86901; 87081; 94003; 94150; J2250; J2710

== ENCOUNTER 2019-03-06 05:26 | Inpatient (IN) | payer OTHER ==
[~2019-03-06] VITALS: Ht 180.3 cm; Wt 84.8 kg
[2019-03-06] VITALS (14 sets, daily range): BP systolic 104–131; BP diastolic 54–86
[~2019-03-06 05:26] MED LIST changes: -Vancomycin 1 GM in D5W 275 ML IVPB ONE
[2019-03-06] MEDS ORDERED: Metoclopramide 10mg/2ml Inj IVP PRN ×2 (06:15→07:30)
[2019-03-06] MEDS ORDERED: HYDROcodone/Acetamin 7.5/325 tab ORAL PRN ×2 (06:15→07:30)
[2019-03-06] MEDS ORDERED: LORazepam Inj 2mg/ml 1ml IV PRN (06:15)
[2019-03-06] MEDS ORDERED: oxyCODONE HCL/Acetaminophen 5/325mg ORAL PRN (06:15)
[2019-03-06] MEDS ORDERED: Meperidine 50mg/ml Inj(FOR RIGORS ONLY) IVP PRN (06:15)
[2019-03-06] MEDS ORDERED: Atropine Sulfate 0.4mg/ml inj IVP PRN (06:15)
[2019-03-06] MEDS ORDERED: Labetalol 5mg/ml 20ml vial IV PRN (06:15)
[2019-03-06] MEDS ORDERED: Midazolam 2mg/2ml Inj IVP PRN (06:15)
[2019-03-06] MEDS ORDERED: HYDROcodone/Acetamin 5/325 tab ORAL PRN ×2 (06:15→07:30)
[2019-03-06] MEDS ORDERED: LR 1000ml 1,000 ML IVLG SCH (06:15)
[2019-03-06] MEDS ORDERED: Acetaminophen (Non formulary) 100 ML IV ONE (06:15)
[2019-03-06] MEDS ORDERED: Ketorolac 30mg Inj IV PRN ×2 (06:15)
[2019-03-06] MEDS ORDERED: DiphenhydrAMINE 50mg/ml Inj IVP PRN (06:15)
[2019-03-06] MEDS ORDERED: fentaNYL 100 mcg/2 mL IV PRN (06:15)
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
[2019-03-06] MEDS ORDERED: Zemuron 50mg/5ml Inj IV ONE (06:25)
[2019-03-06] MEDS ORDERED: Midazolam 2mg/2ml Inj ONE ×2 (06:35→06:55)
[2019-03-06] MEDS ORDERED: fentaNYL 100 mcg/2 mL IV ONE ×4 (06:35→12:43)
[2019-03-06] MEDS ORDERED: Lidocaine 1% Plain 30 ml INJ ONE ×2 (06:58→09:05)
[2019-03-06] MEDS ORDERED: NS Irrig 1000ml ONE (07:00)
[2019-03-06] MEDS ORDERED: LR 1000ml ONE (07:00)
[2019-03-06] MEDS ORDERED: Sterile Water Irrig 1000ml IRRIG ONE (07:00)
[2019-03-06] MEDS ORDERED: Propofol 1,000mg/ 100ml btl IV ONE (07:00)
[2019-03-06] MEDS ORDERED: Heparin 5000 units/ml inj ONE (07:03)
[2019-03-06] MEDS ORDERED: Bupivacaine w/Epi 0.5% 30ml Vial INJ ONE (07:04)
[2019-03-06] MEDS ORDERED: Gelfoam Size TOPIC ONE ×2 (07:04→07:05)
[2019-03-06] MEDS ORDERED: Thrombin 5000 units TOPIC ONE (07:04)
[2019-03-06] MEDS ORDERED: Bacitracin 50000 Units Vial ONE (07:05)
--- NOTE | 2019-03-06 07:14 | Immediate Post-Op Evaluation ---
Immediate Post-Op Evalulation Immediate Post-Op Evalulation Procedure: ALIF L5-S1, PSF L5-S1 Date of Evaluation: Mar 06, 2019 Time of Evaluation: 13:18 IV Fluids: 1100 LR Blood Products: 0 Estimated Blood Loss: 125 Urinary Output: 200 Blood Pressure Systolic: 108 Blood Pressure Diastolic: 54 Pulse Rate: 81 Respiratory Rate: 16 O2 Sat by Pulse Oximetry: 100 Temperature (Fahrenheit): 97.6 Pain Score (1-10): 2 Nausea: No Vomiting: No Complications 0 Patient Status: awake, reacts, patent, extubated, none Hydration Status: adequate Dru Grams Ancef IV Given Within 1 Hr of Incision: Yes Time Given: 07:31 Ildefonso Joseph MD Mar 06, 2019 07:14
--- NOTE | 2019-03-06 07:25 | Pre-Procedure Note/Attestation ---
Pre-Procedure Note/Attestation Complete Prior to Procedure Planned Procedure: not applicable Procedure Narrative: Stage 1 Anterior lumbar interbody fusion of L5S1 with bone morphogenic protein and Stage 2 Earl Vargas /Cota laminectomy pedicle screw fixation of L5S1 Indications for Procedure Pre-Operative Diagnosis: L5S1 herniation and recalcitrant low back pain Attestation I attest that I discussed the nature of the procedure; its benefits; risks and complications; and alternatives (and the risks and benefits of such alternatives ), prior to the procedure, with the patient (or the patient's legal congressional representative). I attest that, if there was a reasonable possibility of needing a blood transfusion, the patient (or the patient's legal congressional representative) was given the [place] [employer] standardized written summary, pursuant to the Charlie Sol Blood Safety Act ([place] Health and Safety Code # 1645, as amended). I attest that I re-evaluated the patient just prior to the surgery and that there has been no change in the patient's H&P, except as documented below: Byron Law MD Mar 06, 2019 07:25
--- NOTE | 2019-03-06 07:26 | Brief Operative Note ---
Immediate Post Operative Note Operative Note Chief Complaint: back pain and bilateral leg radiculupathy Pre-op Diagnosis: L5S1 herniation and recalcitrant low back pain Procedure: Stage 1 Anterior lumbar interbody fusion of L5S1 with bone morphogenic protein and Stage 2 Earl Vargas /Cota laminectomy pedicle screw fixation of L5S1 Post-op Diagnosis: same as pre-op Findings: consistent w/pre-op dx studies Surgeon: Thanh Wirer: Brandy Anesthesiologist: Opal Anesthesia: general Specimen: none Complications: none Condition: stable Fluids: IVF Estimated Blood Loss: minimal Drains: none Implant(s) used?: Yes - Nuvasive brigade size 16, Synthes screws 4x 6mm,40mm Byron Law MD Mar 06, 2019 07:26
[2019-03-06] MEDS ORDERED: Morphine Sulfate 4mg/ml Inj (IV USE ONLY) IV PRN ×2 (07:30)
[2019-03-06] MEDS ORDERED: Milk of Magnesia 30ml Ud ORAL PRN (07:30)
[2019-03-06] MEDS ORDERED: Morphine Sulfate 2mg/ml Inj(IV/IM USE ONLY) IV PRN (07:30)
[2019-03-06] MEDS ORDERED: Chloraseptic Spray 20mL Bottle ORAL PRN (07:30)
[2019-03-06] MEDS ORDERED: Naloxone 0.4mg/ml Inj IVP PRN (07:30)
[2019-03-06] MEDS ORDERED: HYDROmorphone 1mg/ml Carpuject IVP PRN (07:30)
[2019-03-06] MEDS ORDERED: ePHEDrine 50mg/ml Inj ONE (08:30)
[2019-03-06] MEDS ORDERED: Vancomycin 1gm vial IVPB ONE (09:42)
[2019-03-06] MEDS ORDERED: Glycopyrrolate 0.2mg/ml 1ml Vial ONE (11:03)
[2019-03-06] MEDS ORDERED: Neostigmine 1mg/ml 10ml Inj ONE (11:03)
[2019-03-06] MEDS ORDERED: Sugammadex Sodium 200mg/2ml vial IV ONE (11:30)
[2019-03-06] MEDS ORDERED: Lidocaine 1% MPF 10mg/ml 5ml ONE (11:39)
[2019-03-06] MEDS: Hydromorphone 0.5mg/0.5ml inj IVP PRN ×2 (13:41→14:00)
--- NOTE | 2019-03-06 13:55 | Diagnostic Imaging Report ---
INDICATION: Pain, intraoperative TECHNIQUE: Intraoperative imaging Fluoroscopy time: 201 seconds Total dose: 1.56 mGym2 Total number of images: 6 COMPARISON: None FINDINGS: Intraoperative images demonstrate surgical tool projected over the L5-S1 disc. Subsequent images demonstrate anterior fusion hardware and subsequent posterior fusion hardware placement at L5-S1 IMPRESSION: Intraoperative imaging, as described
--- NOTE | 2019-03-06 14:30 | NUR ---
NURSE NOTES: Patient is in bed awake and able to verbalize needs. Patient is stable with no SOB. Patient complains of pain of back, will administer pain medication as ordered. IV is patent and running fluids as ordered. Posterior surgical dressing clean, dry, and intact. Anterior surgical dressing stained. All belongings with . Patient oriented to room, call light, and unit. Patient encouraged to use call light for assistance, verbalized understanding. Patient is comfortable in bed with call light within reach. Will continue to monitor.
--- NOTE | 2019-03-06 15:00 | NUR ---
NURSE NOTES: Patient's temperature not reading accurately on vital sign machine. Charge nurse made aware. Attempted to recheck temperature x5, no reading available. Patient is not cold or hot to touch, Will continue to monitor.
--- NOTE | 2019-03-06 16:00 | NUR ---
NURSE NOTES: Patient's axillary temperature is 95.9. Warming measures provided. Patient denies chills, pain, or discomfort. No active bleeding noted. Patient is comfortable in bed with call light within reach. Will continue to monitor.
[2019-03-06] MEDS: NS w/KCl 20mEq 1,000 ML IV SCH (16:04)
[2019-03-06] MEDS: HYDROcodone/Acetamin 7.5/325 tab ORAL PRN ×2 (16:05→22:45)
[2019-03-06] MEDS: Docusate 100mg cap ORAL SCH (17:33)
[2019-03-06] MEDS: Vancomycin 1 GM in D5W 275 ML IVPB SCH (17:33)
[2019-03-06] MEDS: Dexamethasone 4mg/ml vial IVP SCH (17:33)
--- NOTE | 2019-03-06 18:30 | Operative Note - Dictated ---
DATE OF OPERATION: 03/06/2019 CO-SURGEONS: 1. Ranulfo Nava M.D. (for the approach). 2. Byron Law M.D. (for the spine procedure). ANESTHESIOLOGIST: Ildefonso Joseph MD. ANESTHESIA: General endotracheal. PREOPERATIVE DIAGNOSIS: Disc disease at L5-S1 (1 interspace). POSTOPERATIVE DIAGNOSIS: Disc disease at L5-S1 (1 interspace). OPERATIVE PROCEDURE: 1. Muscle sparing, anterior abdominal extraperitoneal approach for anterior lumbar interbody fusion of L5-S1 (1 interspace). 2. Mobilization of left iliac artery. 3. Mobilization of left iliac vein. 4. Exposure of the anterior surface of the spine at L5-S1 (1 interspace). INFORMED CONSENT: The procedure of anterior access for an anterior lumbar interbody fusion was explained in detail to the patient preoperatively via the phone and then repeated in the preoperative holding area on the day of surgery. The risks including hemorrhage, infection, vascular injury, ureteral injury, visceral injury, nerve injury, retrograde ejaculation, and lymphedema were explained in detail. The patient stated that he understood the procedure, its rationale and risks. He stated that he had no further questions and accepted the procedures outlined above. Background information, indications for surgery, description of operative findings, and specimens removed will be contained in Dr. Law's operative report. FINDINGS PERTINENT TO THE APPROACH: All retroperitoneal structures were normal. DESCRIPTION OF PROCEDURE: The patient was brought to the operating room in stable condition. Monitoring was instituted with arterial line, ECG, O2 saturation monitor, and blood pressure cuff. A pulse oximeter was placed on the left foot to monitor circulation to the left lower extremity. The patient was induced with anesthesia without any difficulty. The patient was prepared and draped in sterile fashion. Using x-ray and fluoroscopy, the level of the L5-S1 disc was marked on the skin. A left lower quadrant transverse incision was performed from the midline to the edge of the rectus muscle starting approximately one-third of the way between the pubis and umbilicus. The incision was carried down through the subcutaneous tissue to the rectus fascia. The rectus fascia was incised with the cautery with extension into the fibers of the external oblique aponeurosis. Elevation of the rectus fascia away from the anterior surface of the muscle was carried out for approximately 5 cm, both cephalad and caudad. This allowed for retraction of the rectus muscle both medially and laterally to obtain direct A-P access to the spine. The inferior epigastric vessels were identified and preserved. The transversalis fascia was entered exposing the retroperitoneum. The peritoneum was bluntly dissected away from the undersurface of the internal oblique muscle. Careful blunt dissection was used to elevate the peritoneum anteriorly until the psoas muscle was identified. The ureter was also identified and swept upwards with the peritoneum and its contents. Further dissection was used to expose the anterior surface of the left common iliac artery. A Hughes retractor was placed into the retroperitoneum, lateral to the psoas muscle. A lap sponge was inserted over the psoas muscle and pushed superiorly to keep the abdominal contents off the way with a Prescott retractor. Careful sharp and blunt dissection was used to expose the entire length of the common iliac artery to its origin at the aortic bifurcation. Dissection along the medial wall of the artery was carried out to expose the left common iliac vein, which lies under and slightly to the right of the artery. With extreme care, the vein was exposed in its entirety and deep dissection carried out to expose the L5-S1 disc space. The middle sacral vessels were carefully ligated and cauterized proximally and distally and transected. Any other venous tributaries in the area were controlled with clips and/or cautery and transected. Mobilization of the iliac vessels below the bifurcation was carried out for proper visualization of the anterior surface of the spine. This was done with careful blunt dissection to peel away the left common iliac vein from the anterior longitudinal ligament to which it was very closely approximated. This dissection along the anterior surface of the spine was carried out bluntly without the use of cautery to preserve the sympathetic plexus, which lies anteriorly overlying the aortic bifurcation and extends inferiorly towards the sacral hollow. After proper skeletonization and mobilization of the vessels and preservation of all vital structures, the Hughes-Prescott retractor combination was removed and the table held retractor system was deployed. The retractor blades were inserted with the rectus muscle now retracted laterally, first on the right to expose that side of the disc space and then on the left to keep the iliac vessels out of the way. A third retractor blade was placed inferiorly. The midline and level were confirmed by placing a needle into the disc and using fluoroscopy. A fourth superior retractor blade was placed. This allowed complete exposure on direct A-P approach to the anterior surface of the spine at L5-S1. Dr. Law proceeded to perform the diskectomy, partial vertebrectomy and fusion using the appropriate technique and hardware. After the diskectomy, vertebrectomy and fusion was completed, irrigation with antibiotic solution was carried out. The retractor blades were removed and the integrity of the iliac vessels was checked to make sure that there was no tear or thrombosis of the vein and that there was adequate flow through the artery, with no evidence of spasm or thrombosis. A further check for hemostasis was made and the integrity of the ureter was verified. The peritoneum was allowed to return to its normal anatomic position. The anterior rectus sheath was closed with a continuous suture of #1 Vicryl. A subcuticular/subdermal suture of continuous 2-0 Vicryl was used to approximate subcutaneous tissue and skin. Steri-Strips and a sterile dressing were applied. Manual and visual sweeps were correct. Final sponge, needle, and instrument counts were verified as correct x2. The estimated blood loss from the procedure was minimal and approximately 15 mL. There were excellent dorsalis pedis and posterior tibial pulses in both feet. There was 100% oxygen saturation with a triphasic waveform on the left foot pulse oximeter, consistent with preoperative baseline. The patient remained in the operating room, under anesthesia, in stable condition and prepared for the posterior portion of the procedure. Ranulfo Nava M.D. DR: SHAZIA JOB#: [id number] CC: Byron Law M.D.; Fax#: [phone]
--- NOTE | 2019-03-06 19:00 | NUR ---
NURSE NOTES: Patient's temperature is 96.6. Warming blanket in place. Patient is stable. Patient denies discomfort at this time. Patient is not cold or hot to touch. Patient is in bed with call light within reach, will continue to monitor.
--- NOTE | 2019-03-06 19:29 | NUR ---
NURSE NOTES: Report taken from ARAMIS Nichole. Patient awake and in bed, A&Ox4, at bedside. No signs of distress on o room air. Patient having minimal pain, 3/10 mostly when moving. Anterior surgical site d/i, has some staining from sx, day shift noted no change in drainage. Posterior dressing c/d/i. No skin issues present. IV c/d/i and patent, running NS+20KCl at 100ml/hr. Patient hoping to begin walking and go home tomorrow. Continue to monitor, bed in lowest position, call light within reach.
--- NOTE | 2019-03-06 19:30 | NUR ---
HAND-OFF: Report given to Isidoro SELF. Patient is stable.
--- NOTE | 2019-03-06 20:17 | Cardiology Progress Note ---
Assessment/Plan Assessment/Plan [id number] Objective Last 24 Hour Vital Signs Date Time Temp Pulse Resp B/P (MAP) Pulse Ox O2 Delivery O2 Flow Rate FiO2 03/06/19 19:00 96.6 03/06/19 18:00 96.3 03/06/19 16:00 95.9 69 18 131/86 (101) 99 03/06/19 15:20 81 18 117/71 (86) 98 03/06/19 14:20 98.0 03/06/19 14:20 93 19 112/65 100 Nasal Cannula 3 03/06/19 14:20 79 18 120/72 (88) 98 03/06/19 14:15 98.0 94 17 112/72 100 Nasal Cannula 3 03/06/19 14:00 93 19 112/65 100 Nasal Cannula 3 03/06/19 13:55 92 16 104/63 100 Nasal Cannula 3 03/06/19 13:41 93 13 116/71 100 Nasal Cannula 3 03/06/19 13:35 96 15 116/71 100 Nasal Cannula 3 03/06/19 13:25 100 16 114/58 100 Simple Mask 6 03/06/19 13:17 85 13 110/56 100 Simple Mask 6 03/06/19 13:12 80 13 104/56 100 Simple Mask 6 03/06/19 13:07 97.6 81 16 108/54 100 Simple Mask 6 03/06/19 13:05 81 16 100 03/06/19 06:10 Room Air 03/06/19 05:52 97.0 60 18 124/69 (87) 99 Intake and Output 03/05/19 03/06/19 19:00 07:00 # Voids 1 Wali Hutchins MD Mar 06, 2019 20:17
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
[2019-03-07] VITALS: BP 128/85
[2019-03-07] MEDS: Dexamethasone 4mg/ml vial IVP SCH ×3 (00:16→12:00)
[2019-03-07 04:00] VITALS: BP 126/69
[2019-03-07] MEDS: NS w/KCl 20mEq 1,000 ML IV SCH ×2 (04:50→12:00)
[2019-03-07] MEDS: Vancomycin 1 GM in D5W 275 ML IVPB SCH (04:50)
[2019-03-07 06:15] LABS: HEMATOCRIT 38.6 % (42.0-52.0); HEMOGLOBIN 13.3 G/DL (14.2-18.0); MEAN CORPUSCULAR VOLUME 89 FL (80-99); PLATELET COUNT 160 K/UL (150-450); RED BLOOD COUNT 4.34 M/UL (4.70-6.10); RED CELL DISTRIBUTION WIDTH 11.2 % (11.6-14.8); WHITE BLOOD COUNT 13.5 K/UL (4.8-10.8)
[2019-03-07 06:47] LABS: ANION GAP 7 mmol/L (5-15); BLOOD UREA NITROGEN 13 mg/dL (7-18); CALCIUM 8.7 MG/DL (8.5-10.1); CARBON DIOXIDE 27 MMOL/L (21-32); CHLORIDE 105 MMOL/L (98-107); CREATININE 0.9 MG/DL (0.55-1.30); POTASSIUM 4.5 MMOL/L (3.5-5.1); SODIUM 139 MMOL/L (136-145)
--- NOTE | 2019-03-07 07:25 | NUR ---
HAND-OFF: Report given to ARAMIS Bruno. Patient awake, at bedside. In stable condition, hoping to go home today.
--- NOTE | 2019-03-07 07:40 | NUR ---
NURSE NOTES: WALKING ROUNDS DONE WITH OUTGOING RN. PATIENT AWAKE IN BED. QUESTIONS ANSWERED NEEDS MET. DISCUSSED PLAN OF CARE FOR THE DAY.TOLERATING CLEAR LIQUID DIET. DENIES N/V. DIET ADVANCED TO REGULAR ORDERED BY MD VERBALIZED UNDERSTANDING. CALL LIGHT WITHIN REACH.BED IN LOW AND LOCKED POSITION.
[2019-03-07 08:00] VITALS: BP 125/74
[2019-03-07] MEDS: Docusate 100mg cap ORAL SCH (08:58)
[2019-03-07] MEDS: HYDROcodone/Acetamin 7.5/325 tab ORAL PRN (08:59)
--- NOTE | 2019-03-07 10:30 | NUR ---
NURSE NOTES: PATIENT REMAINS STABLE. SEEN BY PKaitlin AMBULATING GAIT STEADY. SEEN BY DR. HICKS. READY FOR DISCHARGE. ORDER RECEIVED. PLACED CALL TO DR. TAPIA. OK TO LEAVE BY HIS STANDPOINT. PATIENT AWARE.
[2019-03-07 12:00] VITALS: BP 129/81
--- NOTE | 2019-03-07 12:15 | NUR ---
NURSE NOTES: DISCHARGE INSTRUCTIONS REVIEWED WITH PATIENT AND . PATIENT EDUCATION PROVIDED. VERBALIZED UNDERSTANDING. ALL BELONGINGS WITH . DRSG CHANGED TO ABD AND LOWER BACK.WELL-APPROXIMATED EDGES.NO DRAINAGE NOTED.
[2019-03-07 14:59] VITALS: BP 126/69
--- NOTE | 2019-03-07 14:59 | 48 Hour Post Anesthesia Eval ---
Post Anesthesia Evaluation Procedure: ALIF L5-S1, PSF L5-S1 Date of Evaluation: Mar 07, 2019 Time of Evaluation: 06:34 Blood Pressure Systolic: 126 0: 69 Pulse Rate: 81 Respiratory Rate: 18 Temperature (Fahrenheit): 97.4 O2 Sat by Pulse Oximetry: 97 Airway: patent Nausea: No Vomiting: No Pain Intensity: 2 Cardiopulmonary Status: Stable Follow-up Care/Observations: 0 Post-Anesthesia Complications: 0 Follow-up care needed: ready to discharge Ildefonso Joseph MD Mar 07, 2019 14:59
--- NOTE | 2019-03-07 15:33 | NUR ---
CASE MANAGEMENT:REVIEW 63 YR OLD MALE HERE FOR ELECTIVE SURGERY SI: back pain & bilateral leg radiculopathy IS: TO SURGERY: STAGE 1 ANTERIOR LUMBAR FUSION IV VANCOMYCIN Q12 : TO MED/SURG 3 EAST POST OP
--- NOTE | 2019-03-07 15:41 | NUR ---
P.T Note: late entry 929 P.T evaluation completed and treatment performed per spinal protocol. Please refer to P.T evaluation for current functional status. Skilled P.T service is warranted to ensure safety and compliance with spinal precautions with when performing AD/functional mobilities.
--- NOTE | 2019-03-07 15:45 | Discharge Summary ---
DATE OF ADMISSION: 03/06/2019 DATE OF DISCHARGE: 03/07/2019 PROCEDURE PERFORMED DURING ADMISSION: Anterior and posterior lumbar fusion at L5-S1. REASON FOR ADMISSION: L5-S1 herniated disk and radiculopathy. HOSPITAL COURSE/TREATMENT RENDERED: DISCHARGE PHYSICAL EXAMINATION: 1. The patient was ambulating with and without the assistance of physical therapy. 2. Prior to discharge home, incision was clean and dry with minimal swelling. 3. Follows commands. 4. Alert and oriented. 5. Mcknight discontinued, voiding. 6. Incentive spirometer at bedside. 7. IVF hep locked. MOTOR: Demonstrates expected postoperative bulk and tone. Moves biceps, triceps, and deltoid musculature on command. Moves hip flexors, quadriceps, tibialis anterior, EHL, gastrocsoleus musculature on command as well. TREATMENT RENDERED: 1. Daily nursing care. 2. Physical Therapy. 3. Occupational Therapy. 4. Intravenous medications. 5. Oral medications. 6. Daily postoperative examinations by Spine surgery team. CONDITION OF PATIENT ON DISCHARGE: The condition on discharge was stable for discharge to home. DISCHARGE INSTRUCTIONS: Our specific instructions relating to physical activity, medications, diet, and follow-up care are detailed in our standard operative folder and were given to this patient prior to surgery. We will however summarize these briefly as stated below. Regarding physical activity, we would like the patient to limit their flexion, extension, and rotation. We also require a limitation on their bending, lifting, and twisting. All medication has been called in prior to surgery to their pharmacy of choice. They can resume their regular diet once tolerated. We would like them to shower and limit soaking the wound in a tub/Jacuzzi/the ocean for a period of one month or until the incision is completely healed. We will have them follow up in our office in three weeks time for their regularly scheduled appointment. They understand to call our office tomorrow to schedule the time for their three-week followup appointment. The patient will notify us should they experience any increase in the severity of pain, redness/swelling/ or drainage from their incision. Byron Law M.D. DR: SHAY/TESHA JOB#: [id number] CC:
--- NOTE | 2019-03-08 00:45 | Operative Note - Dictated ---
DATE OF OPERATION: 03/06/2019 NOTE: "POOR AUDIO QUALITY" Stage 1 of 2. SURGEON: Byron Law M.D., Orthopaedic Spine Surgeon. EXPOSURE SURGEON: Ranulfo Nava M.D. HOOKING MACHINE OPERATOR SURGEON: Ranulfo Nava M.D. ANESTHESIA: General endotracheal anesthesia. PREOPERATIVE DIAGNOSES: 1. Intractable back pain. 2. Intractable leg pain. 3. Worsening radiculopathy. 4. Weakness. 5. Herniated nucleus pulposus, L5-S1 herniation. 6. Neural foraminal stenosis, L5-S1 herniation. POSTOPERATIVE DIAGNOSES: 1. Intractable back pain. 2. Intractable leg pain. 3. Worsening radiculopathy. 4. Weakness. 5. Herniated nucleus pulposus, L5-S1 herniation. 6. Neural foraminal stenosis, L5-S1 herniation. PROCEDURES PERFORMED: 1. Radical anterior lumbar intervertebral L5-S1 discectomy. 2. Anterior lumbar interbody fusion using NuVasive Brigade size #16 PEEK cage with medium BMP with 5 mL of allograft Garza putty bone. 3. Anterior lumbar plating and fixation at L5-S1 using #4 screws of 25 mm length. 4. Anterior retroperitoneal exposure. 5. Supervision and interpretation of intraoperative fluoroscopy. 6. Supervision and interpretation of somatosensory-evoked potential and free-running EMG monitoring. ESTIMATED BLOOD LOSS: mL. COMPLICATIONS: None. INDICATIONS FOR THE PROCEDURE: The patient is a 63-year-old male who presents for intractable back pain and radiculopathy, which is well documented in our clinical chart and records. We had a long discussion with Larry regarding definitive surgical treatment options. We had a long discussion with the patient regarding the risks, alternatives, and benefits of procedure. Our description of the risks included a discussion in person as well as a signed consent which detailed all pertinent risks and the procedure itself. Briefly, our discussion included but was not limited to infection, bleeding, pseudarthrosis, spinal cord injury, neurovascular injury, dural tear, CSF leak, neuropathy, paralysis, permanent weakness/drop foot, paresthesias, blindness, palsy, and weakness. The patient understood there may be a need for revision surgery or additional procedures. Approach-related complications including dysphonia, dysphagia, blindness, permanent vocal cord and neural injury, hematoma, swallowing and breathing difficulty; medical complications including liver, kidney, shock, and cardiopulmonary failure; anesthesia complications including , swelling, damage to the musculature, larynx , esophagus, trachea, blood vessels and muscles, and lungs during this surgical procedure. Injury to deeper structures may be temporary or permanent. The patient understood these and elected to proceed. A written and verbal consent was given. We discussed the pros and cons of all the alternatives. We discussed the uncertainties associated with the decision. Afterwards I assessed the patients understanding and explored their preferences. All questions were answered and no guarantees were given. Medical clearance was obtained prior to surgery. INTRAOPERATIVE FINDINGS: There was first of all decrease in the normal expected amount of nuclear pulp ossification, which has exhibited the fact that he had an initial injury and not degenerative because he fell. Digitalized demarcation between the and nuclear fragments and metal, which was more consistent with a traumatic injury of the posterior process with entire disc encountered with desiccated distinct margins. In this case, there were distinct margins, however, with trace with nuclear fragments had transmitted through a tear in its prior posterior longitudinal ligament tear which would not look like scar tissue visualized on this microdiscectomy, however, it also demonstrated intraoperatively new tears and fissures in the posterior longitudinal ligament on the right side, PLL, neural foramina concurring that in fact the disc was continuing to tear and , the disc fragments were carefully resected and removed from bilateral neural foramina and the right-side new disc material was also encroaching on the neural foramina therein. The disc would not collapse and not desiccated, all consistent with a traumatic event. DESCRIPTION OF PROCEDURE: Under the benefit of general endotracheal anesthesia and with the assistance of the entire operative team, the patient was moved from the [facility] and the [facility] onto the operative table in the supine position on a radiolucent frame. The head was secured and positioned appropriately. Bilateral arms were secured with Gel Pads and foam and all bony prominences were padded. The bilateral lower extremity SCD and BELKIS hose were placed for DVT prophylaxis. A surgical timeout was called which corroborated our planned procedure. Preoperative antibiotics were administered within 30 minutes of the incision for prophylaxis. Using lateral radiography, the operative levels were delineated. An incision was marked based on our interpretation of lateral radiography and afterwards the body was prepped and draped in the usual sterile manner. The family was notified that we were ready to commence surgery and were called in the waiting room hourly for updates. An incision was based on our lateral fluoroscopic image to center the incision at the L5-S1 interspace. The wound was prepped and draped in the usual sterile fashion. Using a scalpel, a standard retroperitoneal exposure was performed by our vascular surgeon, Dr. Ranulfo Nava and this was delineated in a separate operative note. After appropriate exposure at the L5-S1 disc space, we next turned our attention towards our radical discectomy. This was performed in standard fashion first beginning with a gentle mobilization of all superficial soft tissue overlying the disc space with Kittners. After this was performed, we marked our midline and confirmed our disc space on AP and lateral fluoroscopy. Next, using a 10 blade long-handled scalpel, the disc was resected from the endplates in a box discectomy technique. Next using Vivas elevators, the disc was mobilized off each endplate. After this, using large Leksell rongeurs, the entire disc was removed from the intervertebral space. All residual disc and cartilaginous endplates were resected using a combination of small and medium curettage, pituitaries, size 4 and size 6 Kerrison rongeurs. Next, the endplates were distracted in a parallel fashion using the Pedro fur sorter and a 7.5 Thandle. At this point, the PLL was resected using a small curette and a Kerrison 4 rongeur. Next, the endplates were resected down to bleeding subchondral bone using a ring and box curette. For any residual bleeding which we encountered at this point, this was maintained and controlled with a combination of FloSeal, Gelfoam, and bipolar cautery. Afterwards, Tisseel was used to seal the discectomy site dorsally. Next, I then trialed the interspace for height, width, and depth. This was confirmed on fluoroscopy and once satisfied with our fit, we loaded and inserted a NuVasive Brigade PEEK cage size #16 with bone morphogenetic protein and with allograft Garza putty bone under AP and lateral fluoroscopy. AP and lateral fluoroscopy confirmed excellent placement at the L5-S1 interspace. Afterwards, we turned our attention towards plating from the NuVasive Brigade Interlock system. This anterior lumbar plating and fixation at L5-S1 using #4 screws of 25 mm length. Final radiographs confirmed appropriate placement of all hardware, screws, and our PEEK cage along with a hoahaoism of the lumbar lordosis. Afterwards, Tisseel was used to seal the discectomy site ventrally. FloSeal and Zosyn antibiotics were placed directly on the anterior fusion site. The wounds were copiously irrigated with antibiotic-impregnated saline. Afterwards, FloSeal was placed to address residual bleeding. Powdered antibiotics were directly poured into the wound to provide for direct antibiosis. Next, I turned my attention to closure. Fascial closure was performed with 1-0 Vicryl suture. Subcutaneous tissues were reapproximated with 2-0 Vicryl. The superficial subcutaneous skin was closed with a running Monocryl and Dermabond. Dressings consisted of Tegaderm and 4 x 4 gauze. The patient tolerated the procedure well and after discussion with our vascular surgeon and our anesthesiologist, we made the determination to proceed with stage 2 of 2, our posterior-based approach. The details of stage 1 of the surgery were related to the patients family/representatives upon the conclusion of the procedure in the family waiting room. Stage 2 of 2. DATE OF OPERATION: 03/06/2019 SURGEON: Byron Law M.D., Orthopaedic Spine Surgeon. HOOKING MACHINE OPERATOR SURGEON: Ranulfo Nava M.D. ANESTHESIA: General endotracheal anesthesia. PREOPERATIVE DIAGNOSES: 1. Intractable back pain. 2. Intractable leg pain. 3. Worsening radiculopathy. 4. Weakness. 5. Herniated nucleus pulposus, L5-S1 herniation. 6. Neural foraminal stenosis, L5-S1. POSTOPERATIVE DIAGNOSES: 1. Intractable back pain. 2. Intractable leg pain. 3. Worsening radiculopathy. 4. Weakness. 5. Herniated nucleus pulposus, L5-S1 herniation. 6. Neural foraminal stenosis, L5-S1. PROCEDURES PERFORMED: 1. Bilateral, left-sided and right-sided Cota laminectomy/Earl-Vargas osteotomy, and complete facetectomy at L5-S1. 2. L5-S1 posterolateral fusion using allograft bone, local autograft, and residual bone morphogenetic protein. 3. Percutaneous pedicle screw fixation at L5-S1 using Synthes Imergent screws of 40 mm length of 6 mm diameter, a total of 4. 4. Confirmation of pedicle screws placement using neural monitoring. 5. Use of intraoperative microscope. 6. Supervision and interpretation of intraoperative fluoroscopy. 7. Supervision and interpretation of somatosensory-evoked potential and free-running EMG monitoring. ESTIMATED BLOOD LOSS: mL. COMPLICATIONS: None. INDICATIONS FOR THE PROCEDURE: The patient is a 63-year-old male who presents for stage 2 in regard to his intractable back pain and radiculopathy. This operative note details the second stage of our surgery. Prior to surgery, we had a long discussion with Larry, regarding definitive surgical treatment options. We had a long discussion with the patient regarding the risks, alternatives, and benefits of procedure. Our description of the risks included a discussion in person as well as a signed consent which detailed all pertinent risks and the procedure itself. Briefly, our discussion included but was not limited to infection, bleeding, pseudarthrosis, spinal cord injury, neurovascular injury, dural tear, CSF leak, neuropathy, paralysis, permanent weakness/drop foot, paresthesias, blindness, palsy, and weakness. The patient understood there may be a need for revision surgery or additional procedures. Approach-related complications including dysphonia, dysphagia, blindness, permanent vocal cord and neural injury, hematoma, swallowing and breathing difficulty; medical complications including liver, kidney, shock, and cardiopulmonary failure; anesthesia complications including , swelling, damage to the musculature, larynx, esophagus, trachea, blood vessels and muscles, and lungs during this surgical procedure. Injury to deeper structures may be temporary or permanent. The patient understood these and elected to proceed. A written and verbal consent was given. We discussed the pros and cons of all the alternatives. We discussed the uncertainties associated with the decision. Afterwards I assessed the patients understanding and explored their preferences. All questions were answered and no guarantees were given. This now delineates the second stage of the procedure. INTRAOPERATIVE FINDINGS: There was no significant facet arthropathy encountered. There were some residual disk fragments noted posteriorly on the left side. There was also process which has encroached into the neural foramina and this confirmed the resection what was necessary. DESCRIPTION OF PROCEDURE: Under the benefit of general endotracheal anesthesia and with the assistance of the entire operative team, the patient was moved from the radiolucent operative table in the prone position onto a [place] frame. The head was secured and positioned appropriately. Bilateral arms were secured with Gel Pads and foam and all bony prominences were padded. The bilateral lower extremity SCD and BELKIS hose were placed for DVT prophylaxis. A surgical timeout was called which corroborated our planned procedure. Preoperative antibiotics were administered within 30 minutes of the incision for prophylaxis. Using lateral radiography, the operative levels were delineated. An incision was marked based on our interpretation of anterior, posterior, and lateral radiography and afterwards the body was prepped and draped in the usual sterile manner. The family was notified that we were ready to commence surgery and were called in the waiting room hourly for updates. An incision was based on our anterior, posterior, and lateral fluoroscopic image to center the incision at the L5-S1 interspace. The wound was prepped and draped in the usual sterile fashion. Using a scalpel, a midline incision was made and the subcutaneous tissue was mobilized so that within the fascia, two Fran-based incisions were made, one incision on the left side focusing on his pedicle at L5-S1 through a percutaneous stab wound approach. All pedicles were cannulated in the exact same fashion for each level. This was performed in the following manner. The second incision was made slightly off midline and geared towards his L5-S1 interspace approached. Using Jamshidi needles under direct AP and lateral fluoroscopic visualization, I approached the L5-S1 pedicles with Jamshidi needles making sure to leave clearance along the medial pedicle boundary/wall, and next we advanced our bilateral pedicle screw entry points under AP and lateral fluoroscopy at both our pedicles bilaterally. Next, percutaneous screws were loaded on the right-hand side and on the contralateral side, left. Screws were inserted in percutaneous fashion and afterwards these screws were stimulated. Next, a tahmina was lordosed and placed percutaneously through the incision. Next, we turned our attention to our Earl-Vargas type osteotomy, facetectomy, and decompression. This was performed at each level in the exact same fashion. Based on AP and lateral fluoroscopy, we centered this incision over the facet joints at L5-S1 of the contralateral side. This was taken down through the skin and subcutaneous tissues until the overlying pars facet joints of L5-S1 were visualized under microscopic visualization. There was severe pressure on this neural foramina as palpated with the [place] dental and a Armijo ball probe. The pars was then visualized on the contralateral side and this was carefully resected along with the lamina and superior articular process using a [employer] Jose AM8 drill bit. This was completely resected using a Earl-Vargas type osteotomy and medial laminar removal and facetectomy. There was a significant amount of bleeding which we encountered at this point and this was maintained and controlled with a combination of FloSeal, Gelfoam, and bipolar cautery. After complete resection of the facet joints, we noticed the lateral thecal sac margin and the neural elements. Next, I turned my attention to the stimulation of pedicle screws. All pedicle screws were stimulated with somatosensory-evoked potentials ranging over 20 milliampere with no response. Afterwards, percutaneous rods from the Synthes Pedicle Screw System were inserted and placed percutaneously and locking caps were placed. Final radiographs confirmed appropriate placement of all hardware, screws, and our PEEK cage along with a hoahaoism of the lumbar lordosis. The wounds were copiously irrigated with antibiotic-impregnated saline. Afterwards, FloSeal was placed to address residual bleeding. Powdered antibiotics were directly poured into the wound to provide for direct antibiosis. Next, I turned my attention to closure. Fascial closure was performed with 1-0 Vicryl suture. Subcutaneous tissues were reapproximated with 2-0 Vicryl. The superficial subcutaneous skin was closed with a running Monocryl and Dermabond. Dressings consisted of Tegaderm and 4 x 4 gauze. The patient tolerated the procedure well and will now be admitted to the spine floor for further observation. The details of the entire surgery were related to the patients family/representatives upon the conclusion of the procedure in the family waiting room. Byron Law M.D. DR: Selene JOB#: [id number] CC:
== END 2019-03-07 12:00 | disposition home or self-care (01) | DRG 455 ==
LOC: SDSOVERFLO 05:26 → 3E 14:59
PROC: 0SG30K1 Fusion of Lumbosacral Joint with Nonautologous Tissue Substitute, Posterior Approach, Posterior Column, Open Approach (ICD-10-PCS; principal; 2019-03-06 07:00)
PROC: 0SG30A0 Fusion of Lumbosacral Joint with Interbody Fusion Device, Anterior Approach, Anterior Column, Open Approach (ICD-10-PCS; principal; 2019-03-06 07:00)
PROC: 0ST40ZZ Resection of Lumbosacral Disc, Open Approach (ICD-10-PCS; principal; 2019-03-06 07:00)
PROC: 3E0U0GB Introduction of Recombinant Bone Morphogenetic Protein into Joints, Open Approach (ICD-10-PCS; principal; 2019-03-06 07:00)
PROC: 01NB0ZZ Release Lumbar Nerve, Open Approach (ICD-10-PCS; principal; 2019-03-06 07:00)
DX: M51.17 Intervertebral disc disorders with radiculopathy, lumbosacral region (principal); I10 Essential (primary) hypertension; E78.5 Hyperlipidemia, unspecified; K21.9 Gastro-esophageal reflux disease without esophagitis; N40.0 Benign prostatic hyperplasia without lower urinary tract symptoms; Z96.652 Presence of left artificial knee joint; V89.2XXS Person injured in unspecified motor-vehicle accident, traffic, sequela; M48.07 Spinal stenosis, lumbosacral region
CPT/HCPCS: 36415; 72020; 76000; 80048; 82533; 84443; 85025; 86850; 86900; 86901; 87081; J2250; J2405; J2710